=== PATIENT | male | born 1965 | race Caucasian/White ===

== ENCOUNTER 2016-11-29 09:37 | Emergency (ER) | payer BC ==
[~2016-11-29] VITALS: Ht 154.9 cm; Wt 68.5 kg
[~2016-11-29 09:37] MED LIST: NAPR-260 PO
[2016-11-29 09:45] VITALS: Ht 154.9 cm; Wt 68.5 kg
[2016-11-29] MEDS ORDERED: ACETAMINOPHEN 325 MG TAB PO ONE (11:00)
[2016-11-29 11:17] LABS: ADD SCAN DIFF NO
[2016-11-29 11:34] LABS: BASOPHILS % 0.3 % (0.0-2.0); EOSINOPHILS % 0.1 % (0.0-7.0); HEMATOCRIT 38.5 % (42.0-52.0); HEMOGLOBIN 13.4 g/dl (14.0-18.0); LYMPHOCYTES # 1.4 10^3/ul (0.8-2.9); LYMPHOCYTES % 11.9 % (15.0-51.0); MEAN CORPUSCULAR HEMOGLOBIN 29.4 pg (29.0-33.0); MEAN CORPUSCULAR HGB CONC 34.8 g/dl (32.0-37.0); MEAN CORPUSCULAR VOLUME 84.4 fl (82.0-101.0); MEAN PLATELET VOLUME 9.8 fl (7.4-10.4); MONOCYTE # 1.3 10^3/ul (0.3-0.9); MONOCYTES % 11.1 % (0.0-11.0); NEUTROPHIL # 9.2 10^3/ul (1.6-7.5); NEUTROPHILS % 76.2 % (39.0-77.0); PLATELET COUNT 252 10^3/UL (140-415); RED BLOOD COUNT 4.56 10^6/ul (4.70-6.10); RED CELL DISTRIBUTION WIDTH 14.7 % (11.5-14.5)
[2016-11-29 11:39] LABS: ADD UMIC YES; ALBUMIN 3.7 g/dl (3.3-4.9); ALBUMIN/GLOBULIN RATIO 0.92; BILIRUBIN,INDIRECT 0.3 mg/dl (0-1.1); BILIRUBIN,TOTAL 0.3 mg/dl (0.2-1.3); CREATININE 0.85 mg/dl (0.61-1.24); POTASSIUM 3.6 mmol/L (3.5-5.1); TOTAL PROTEIN 7.7 g/dl (6.1-8.1); URINE BILIRUBIN (Dip) NEGATIVE (NEGATIVE); URINE BLOOD (Dip) 1+ (NEGATIVE); URINE COLOR LT. YELLOW (YELLOW); URINE GLUCOSE (Dip) NEGATIVE (NEGATIVE); URINE KETONES (Dip) NEGATIVE (NEGATIVE); URINE LEUKOCYTE ESTERASE (Dip) 1+ (NEGATIVE); URINE NITRITE (Dip) POSITIVE (NEGATIVE); URINE TOTAL PROTEIN (Dip) TRACE (NEGATIVE); URINE UROBILINOGEN (Dip) 0.2 E.U./dL (0.1-1.0)
--- NOTE | 2016-11-29 11:40 | RADRPT ---
PROCEDURE: XR Chest. CLINICAL INDICATION: Abdominal pain. TECHNIQUE: Single frontal chest x-ray. COMPARISON: Chest vyncllybfh72/02/2016. FINDINGS: The cardiomediastinal silhouette is unremarkable. Mild bibasilar atelectasis is noted. No pneumothorax, pleural effusion or consolidation is seen. No acute osseous abnormality is noted. IMPRESSION: 1. Mild bibasilar atelectasis. 2. Otherwise no acute cardiopulmonary abnormality. RPTAT: HH .Didi Ramachandran MD, Date Time Electronically viewed and signed by .Didi Ramachandran MD, on 11/29/2016 11:39 .N/
[2016-11-29 11:48] LABS: BACTERIA,URINE MANY; URINE RBCS 0-2 /HPF (0)
[2016-11-29] MEDS ORDERED: SOD CHLORIDE 0.9% 1,000 ML IV ONE (12:15)
[2016-11-29] MEDS ORDERED: CEFTRIAXONE 1 GM/50 ML (PMX) 50 ML IVPB ONE (12:30)
[2016-11-29] MEDS ORDERED: ACET500C5 PO (14:12)
[2016-11-29] MEDS ORDERED: AMOX1TAB10 PO (14:12)
--- NOTE | 2016-11-29 14:16 | ERD ---
ER Documentation Chief Complaint Date/Time DATE: 11/29/16 TIME: 14:15 Chief Complaint body pain,fever x 1 week HPI This 48-year-old male complains of body aches and fever for last week. Some pain with urination possibly. He denies sore throat, cough, vomiting, diarrhea. Patient has a history of UTI but denies he has been told there is any prostate issues or any etiology of UTIs. ROS All systems reviewed and are negative except as per history of present illness. Medications Home Meds Active Scripts Amoxicillin/Potassium Clav (Amox-Clav 875-125 mg Tablet) 875-125 mg Tab, 1 TAB PO BID for 10 Days, #14 TAB Prov:VASILE MICHELE MD 11/29/16 Acetaminophen* (Tylophen*) 500 Mg Capsule, 1 CAP PO Q6H Y for PAIN AND OR ELEVATED TEMP, #20 CAP Prov:VASILE MICHELE MD 11/29/16 Naproxen* (Naprosyn*) 500 Mg Tablet, 500 MG PO BID Y for PAIN AND/OR INFLAMMATION, #30 TAB Prov:STEPHANIA YORK MD 05/18/16 Allergies Allergies: Coded Allergies: No Known Allergy (Unverified , 06/23/14) PMhx/Soc Medical and Surgical Hx: pt denies Medical Hx, pt denies Surgical Hx Hx Alcohol Use: No Hx Substance Use: No Hx Tobacco Use: No Physical Exam Vitals Vital Signs Date Time Temp Pulse Resp B/P Pulse Ox O2 Delivery O2 Flow Rate FiO2 11/29/16 09:45 102.1 117 18 137/78 98 Physical Exam Const: [] Head: Atraumatic Eyes: Normal Conjunctiva ENT: Normal External Ears, Nose and Mouth. Neck: Full range of motion..~ No meningismus. Resp: Clear to auscultation bilaterally Cardio: Regular rate and rhythm, no murmurs Abd: Soft, non tender, non distended. Normal bowel sounds Skin: No petechiae or rashes Back: No midline or flank tenderness Ext: No cyanosis, or edema Neur: Awake and alert Psych: Normal Mood and Affect Result Diagram: 11/29/16 1100 11/29/16 1100 Results 24 hrs Laboratory Tests Test 11/29/16 11:00 White Blood Count 12.010^3/ul Red Blood Count 4.5610^6/ul Hemoglobin 13.4g/dl Hematocrit 38.5% Mean Corpuscular Volume 84.4fl Mean Corpuscular Hemoglobin 29.4pg Mean Corpuscular Hemoglobin Concent 34.8g/dl Red Cell Distribution Width 14.7% Platelet Count 81747^3/UL Mean Platelet Volume 9.8fl Neutrophils % 76.2% Lymphocytes % 11.9% Monocytes % 11.1% Eosinophils % 0.1% Basophils % 0.3% Nucleated Red Blood Cells % 0.0/100WBC Neutrophils # 9.210^3/ul Lymphocytes # 1.410^3/ul Monocytes # 1.310^3/ul Eosinophils # 0.010^3/ul Basophils # 0.010^3/ul Nucleated Red Blood Cells # 0.010^3/ul Urine Color LT. YELLOW Urine Clarity CLEAR Urine pH 6.0 Urine Specific [place] 1.010 Urine Ketones NEGATIVE Urine Nitrite POSITIVE Urine Bilirubin NEGATIVE Urine Urobilinogen 0.2 E.U./dL Urine Leukocyte Esterase 1+ Urine Microscopic RBC 0-2/HPF Urine Microscopic WBC 25-50/HPF Urine Bacteria MANY Urine Hemoglobin 1+ Urine Glucose NEGATIVE% Urine Total Protein TRACE Sodium Level 131mmol/L Potassium Level 3.6mmol/L Chloride Level 99mmol/L Carbon Dioxide Level 21mmol/L Anion Gap 15 Blood Urea Nitrogen 11mg/dl Creatinine 0.85mg/dl Glucose Level 148mg/dl Calcium Level 9.0mg/dl Total Bilirubin 0.3mg/dl Direct Bilirubin 0.00mg/dl Indirect Bilirubin 0.3mg/dl Aspartate Amino Transf (AST/SGOT) 28IU/L Alanine Aminotransferase (ALT/SGPT) 43IU/L Alkaline Phosphatase 133IU/L Total Protein 7.7g/dl Albumin 3.7g/dl Globulin 4.00g/dl Albumin/Globulin Ratio 0.92 Lipase 87U/L Current Medications Medications (Trade) Dose Ordered Sig/Riya Route PRN Reason Start Time Stop Time Status Last Admin Dose Admin Acetaminophen 650 mg 650 mg ONCE ONCE PO 11/29/16 11:00 11/29/16 11:01 DC 11/29/16 11:00 Ceftriaxone Sodium 50 ml @ 100 mls/hr ONCE ONCE IVPB 11/29/16 12:30 11/29/16 12:59 DC 11/29/16 13:27 Sodium Chloride (NS) 1,000 ml @ 0 mls/hr Q0M ONCE IV 11/29/16 12:15 11/29/16 12:16 DC 11/29/16 13:27 Procedures/MDM I views obtained. CBC shows white blood cell count of 12, otherwise no acute abnormalities. Sodium is 131, otherwise no acute findings on CMP. Blood culture 2 pending urine culture pending. Urine shows positive leukocytes, nitrites and hemoglobin was sent for culture. Chest X-ray 1V Interpreted by me: Soft Tissue: No acute abnormalities Bones: No acute abnormalities Mediastinum/Cardiac Silhouette/Lungs: [No acute abnormalities]. Impression- normal 1 view chest x-ray Patient was given Rocephin 1 g IV and 1 L normal saline IV as well as medication for fever. Patient was observed till vital signs improved. Tachycardia likely due to fever. patient presents with fever and UTI symptoms was not ill-appearing suspicion is low for sepsis should be amenable to outpatient treatment. Patient will be treated with Augmentin and Tylenol home instructions for fluids. She recheck the next day for vomiting, chest pain, shortness breath, new or worsening symptoms or with primary care doctor this week. The patient was stable with no new complaints during the ER course. Clinically, there is no current evidence to suggest meningitis, sepsis, acute abdomen, pneumonia, acute coronary syndrome, pulmonary embolism, or any other emergent condition appearing to require further evaluation or hospitalization. The patient should certainly return for any new or worsening symptoms per the aftercare instructions. They should otherwise follow-up with her primary care doctor for reevaluation this week. Departure Diagnosis: Primary Impression: UTI (urinary tract infection) Urinary tract infection type: acute cystitis Hematuria presence: without hematuria Qualified Code: N30.00 - Acute cystitis without hematuria Additional Impression: Fever Fever type: unspecified Qualified Code: R50.9 - Fever, unspecified fever cause Condition: Stable Patient Instructions: Understanding Urinary Tract Infections (UTIs), Fever Control (Adult) Additional Instructions: CAROLEE JOSEO ZAHIDA . Cheque otro vez con [facility] doctor primario en el proximo ortiz or regresa para mas o nueva simptomas. VASILE MICHELE MD November 29, 2016 14:16
[2016-11-29] MEDS ORDERED: DOCU-144 PO (15:12)
== END 2016-11-29 15:15 | disposition home or self-care (01) ==
LOC: FTE 09:37
DX: N30.00 Acute cystitis without hematuria (principal)
CPT/HCPCS: 71010; 80053; 81001; 83690; 85025; 87040; 87086; J0696; J7030; Z7610; 81003

== ENCOUNTER 2016-12-20 01:10 | Emergency (ER) | payer BC ==
[~2016-12-20] VITALS: Ht 162.6 cm; Wt 64.5 kg
[~2016-12-20 01:10] MED LIST changes: +ACET500C5 PO; +AMOX1TAB10 PO; +DOCU-144 PO
[2016-12-20 01:12] VITALS: Ht 162.6 cm; Wt 64.5 kg
[2016-12-20] MEDS ORDERED: morphine 4 MG/ML VIAL IV STA (06:22)
[2016-12-20] MEDS ORDERED: ONDANSETRON 4 MG INJ IV STA (06:22)
[2016-12-20] MEDS ORDERED: SOD CHLORIDE 0.9% 1,000 ML IV STA (06:22)
[2016-12-20 06:32] LABS: ADD SCAN DIFF NO
[2016-12-20 06:34] LABS: BASOPHILS % 0.6 % (0.0-2.0); EOSINOPHILS % 0.4 % (0.0-7.0); HEMOGLOBIN 14.3 g/dl (14.0-18.0); LYMPHOCYTES # 1.8 10^3/ul (0.8-2.9); LYMPHOCYTES % 33.7 % (15.0-51.0); MEAN CORPUSCULAR HEMOGLOBIN 29.2 pg (29.0-33.0); MEAN CORPUSCULAR HGB CONC 33.3 g/dl (32.0-37.0); MEAN CORPUSCULAR VOLUME 87.8 fl (82.0-101.0); MEAN PLATELET VOLUME 10.1 fl (7.4-10.4); MONOCYTE # 0.6 10^3/ul (0.3-0.9); MONOCYTES % 10.5 % (0.0-11.0); NEUTROPHIL # 2.9 10^3/ul (1.6-7.5); NEUTROPHILS % 54.6 % (39.0-77.0); PLATELET COUNT 305 10^3/UL (140-415); RED CELL DISTRIBUTION WIDTH 15.2 % (11.5-14.5); WHITE BLOOD COUNT 5.2 10^3/ul (4.8-10.8)
[2016-12-20 07:01] LABS: ADD UMIC YES; URINE BILIRUBIN (Dip) NEGATIVE (NEGATIVE); URINE BLOOD (Dip) TRACE (NEGATIVE); URINE COLOR LT. YELLOW (YELLOW); URINE GLUCOSE (Dip) NEGATIVE (NEGATIVE); URINE KETONES (Dip) NEGATIVE (NEGATIVE); URINE LEUKOCYTE ESTERASE (Dip) NEGATIVE (NEGATIVE); URINE NITRITE (Dip) NEGATIVE (NEGATIVE); URINE TOTAL PROTEIN (Dip) TRACE (NEGATIVE); URINE UROBILINOGEN (Dip) 0.2 E.U./dL (0.1-1.0)
--- NOTE | 2016-12-20 07:06 | RADRPT ---
PROCEDURE: US Abdomen. CLINICAL INDICATION: abdominal pain TECHNIQUE: Multiple real-time images were acquired of the patient's right upper quadrant abdomen a nd retroperitoneum utilizing a high resolution transducer. COMPARISON: None FINDINGS: Limited study due to overlying bowel gas. The pancreas was not well seen. The liver demonstrates normal echogenicity. The liver is normal in size and no focal solid lesions are seen. The liver measures 14.2 cm in length. The portal vein is patent with normal direction of f low. No intrahepatic biliary dilatation is seen. No gallstones are identified within the gallbladder. There is no pericholecystic fluid or gallbladd er wall thickening. The common bile duct measures 6.7 mm in maximal dimension. No free fluid is identified. The right kidney is normal in size, and demonstrate normal echogenicity and cortical thickness. The right kidney measures 10.3 cm in long dimension. There is no evidence of hydronephrosis. There are no kidney stones. RPTAT: AA IMPRESSION: Limited study due to overlying bowel gas. No evidence of gallstones. Mildly dilated CBD. Pancreas not seen due to overlying bowel gas. .Nicholas Brown MD, Date Time Electronically viewed and signed by .Nicholas Brown MD, on 12/20/2016 07:06 .S/
[2016-12-20 07:08] LABS: ALANINE AMINOTRANSFERASE 25 IU/L (13-69); ALBUMIN 4.6 g/dl (3.3-4.9); ALBUMIN/GLOBULIN RATIO 1.27; ALKALINE PHOSPHATASE 102 IU/L (42-121); ANION GAP 16 (8-16); ASPARTATE AMINO TRANSFERASE 30 IU/L (15-46); BLOOD UREA NITROGEN 22 mg/dl (7-20); CALCIUM 8.6 mg/dl (8.4-10.2); CARBON DIOXIDE 20 mmol/L (21-31); CHLORIDE 113 mmol/L (97-110); CREATININE 0.89 mg/dl (0.61-1.24); GLUCOSE 105 mg/dl (70-220); POTASSIUM 3.9 mmol/L (3.5-5.1); SODIUM 145 mmol/L (135-144); TOTAL PROTEIN 8.2 g/dl (6.1-8.1)
[2016-12-20 07:15] LABS: SQUAMOUS EPITHELIAL CELL,UR FEW; URINE RBCS 0-2 /HPF (0)
[2016-12-20 07:24] LABS: TROPONIN-I < 0.012 ng/ml (0.00-0.12)
[2016-12-20] MEDS ORDERED: ONDA4TAB14 PO (07:30)
[2016-12-20] MEDS ORDERED: HYDR-902 PO (07:30)
[2016-12-20] MEDS ORDERED: LOPE2CAP PO (07:30)
--- NOTE | 2016-12-20 07:32 | ERD ---
ER Documentation Chief Complaint Date/Time DATE: 12/20/16 TIME: 07:31 Chief Complaint ABD PAIN, N/V/D X 3 DAYS WITH INTERMITTENT FEVER HPI Patient is a 51-year-old male with diabetes who presents with abdominal pain. The symptoms started on Monday. The pain comes and goes. He has had vomiting and diarrhea as well. He says that he has had subjective fevers and tried Tylenol for pain. The patient says the pain is in his upper abdomen. Upon review of old medical records this is the patient's fifth visit to the ER since 2013. He does not remember the name of his primary doctor. ROS All systems reviewed and are negative except as per history of present illness. Medications Home Meds Active Scripts Loperamide Hcl* (Imodium*) 2 Mg Capsule, 2 MG PO .AFTER EA LOOSE BM Y for DIARRHEA, #10 TAB Prov:JANICE SINGLETON MD 12/20/16 Ondansetron (Ondansetron Odt) 4 Mg Tab.rapdis, 4 MG PO Q6H Y for NAUSEA AND/OR VOMITING, #10 TAB Prov:JANICE SINGLETON MD 12/20/16 Hydrocodone/Acetaminophen ([place] 10-325 Tablet) 1 Each Tablet, 1 TAB PO Q6H Y for PAIN, #7 TAB Prov:JANICE SINGLETON MD 12/20/16 Docusate Sodium* (Colace*) 100 Mg Capsule, 100 MG PO BID, #20 CAP Prov:VASILE MICHELE MD 11/29/16 Amoxicillin/Potassium Clav (Amox-Clav 875-125 mg Tablet) 875-125 mg Tab, 1 TAB PO BID for 10 Days, #14 TAB Prov:VASILE MICHELE MD 11/29/16 Acetaminophen* (Tylophen*) 500 Mg Capsule, 1 CAP PO Q6H Y for PAIN AND OR ELEVATED TEMP, #20 CAP Prov:VASILE MICHELE MD 11/29/16 Naproxen* (Naprosyn*) 500 Mg Tablet, 500 MG PO BID Y for PAIN AND/OR INFLAMMATION, #30 TAB Prov:STEPHANIA YORK MD 05/18/16 Allergies Allergies: Coded Allergies: No Known Allergy (Unverified , 06/23/14) PMhx/Soc Medical and Surgical Hx: pt denies Surgical Hx History of Surgery: No Anesthesia Reaction: No Hx Neurological Disorder: No Hx Respiratory Disorders: No Hx Cardiac Disorders: No Hx Psychiatric Problems: No Hx Miscellaneous Medical Probl: Yes (DM) Hx Alcohol Use: No Hx Substance Use: No Hx Tobacco Use: No Smoking Status: Never smoker FmHx Family History: diabetes Physical Exam Vitals Vital Signs Date Time Temp Pulse Resp B/P Pulse Ox O2 Delivery O2 Flow Rate FiO2 12/20/16 07:39 97.6 69 20 113/84 100 Room Air 12/20/16 06:30 74 18 126/93 100 Room Air 12/20/16 01:12 97.0 89 18 111/89 98 Physical Exam Const: Mild distress Head: Atraumatic Eyes: Normal Conjunctiva ENT: Normal External Ears, Nose and Mouth. Neck: Full range of motion..~ No meningismus. Resp: Clear to auscultation bilaterally Cardio: Regular rate and rhythm, no murmurs Abd: Soft, upper abdomen epigastric pain with palpation without rebound or guarding Skin: No petechiae or rashes Back: No midline or flank tenderness Ext: No cyanosis, or edema Neur: Awake and alert Psych: Normal Mood and Affect Result Diagram: 12/20/1662712/20/16627 Results 24 hrs Laboratory Tests Test 12/20/16 06:28 12/20/16 06:40 White Blood Count 5.210^3/ul Red Blood Count 4.9010^6/ul Hemoglobin 14.3g/dl Hematocrit 43.0% Mean Corpuscular Volume 87.8fl Mean Corpuscular Hemoglobin 29.2pg Mean Corpuscular Hemoglobin Concent 33.3g/dl Red Cell Distribution Width 15.2% Platelet Count 26726^3/UL Mean Platelet Volume 10.1fl Neutrophils % 54.6% Lymphocytes % 33.7% Monocytes % 10.5% Eosinophils % 0.4% Basophils % 0.6% Nucleated Red Blood Cells % 0.0/100WBC Neutrophils # 2.910^3/ul Lymphocytes # 1.810^3/ul Monocytes # 0.610^3/ul Eosinophils # 0.010^3/ul Basophils # 0.010^3/ul Nucleated Red Blood Cells # 0.010^3/ul Sodium Level 145mmol/L Potassium Level 3.9mmol/L Chloride Level 113mmol/L Carbon Dioxide Level 20mmol/L Anion Gap 16 Blood Urea Nitrogen 22mg/dl Creatinine 0.89mg/dl Glucose Level 105mg/dl Calcium Level 8.6mg/dl Total Bilirubin 0.0mg/dl Direct Bilirubin 0.00mg/dl Indirect Bilirubin 0.0mg/dl Aspartate Amino Transf (AST/SGOT) 30IU/L Alanine Aminotransferase (ALT/SGPT) 25IU/L Alkaline Phosphatase 102IU/L Troponin I < 0.012ng/ml Total Protein 8.2g/dl Albumin 4.6g/dl Globulin 3.60g/dl Albumin/Globulin Ratio 1.27 Lipase 123U/L Urine Color LT. YELLOW Urine Clarity CLEAR Urine pH 6.0 Urine Specific [place] >=1.030 Urine Ketones NEGATIVE Urine Nitrite NEGATIVE Urine Bilirubin NEGATIVE Urine Urobilinogen 0.2 E.U./dL Urine Leukocyte Esterase NEGATIVE Urine Microscopic RBC 0-2/HPF Urine Microscopic WBC 0-2/HPF Urine Squamous Epithelial Cells FEW Urine Hemoglobin TRACE Urine Glucose NEGATIVE% Urine Total Protein TRACE Current Medications Medications (Trade) Dose Ordered Sig/Riya Route PRN Reason Start Time Stop Time Status Last Admin Dose Admin Sodium Chloride (NS) 1,000 ml @ 1,000 mls/hr Q1H STAT IV 12/20/16 06:22 12/20/16 07:21 DC 12/20/16 07:03 Morphine Sulfate (morphine) 4 mg ONCE STAT IV 12/20/16 06:22 12/20/16 06:23 DC 12/20/16 07:03 Ondansetron HCl (Zofran Inj) 4 mg ONCE STAT IV 12/20/16 06:22 12/20/16 06:23 DC 12/20/16 07:03 Procedures/MDM EKG read by me: Rate/Rhythm: Regular rate and rhythm at a rate of 72 Intervals: Normal Impression: No evidence of ischemia or arrhythmia Ultrasound negative per radiology. Patient is a 51-year-old male with diabetes who presents with abdominal pain and vomiting. He also has diarrhea. He has no signs of appendicitis, cholecystitis, pancreatitis, or bowel obstruction. At this point I believe outpatient management is appropriate but the patient will need close follow-up with his primary doctor within 24 hours for reevaluation. He will be given medications for symptomatically relief. He can return sooner for any worsening symptoms. He was provided copies with laboratory studies and ultrasound report prior to discharge. Departure Diagnosis: Primary Impression: Vomiting and diarrhea Additional Impression: Abdominal pain Abdominal location: epigastric Qualified Code: R10.13 - Epigastric pain Condition: Fair Patient Instructions: Abdominal Pain, Self-Care for Vomiting and Diarrhea Referrals: Your doctor Additional Instructions: Llame al doctor MAANA y shea suzie MATT PARA DENTRO DE 1-2 LO.Dgale a la secretaria que nosotros le instruimos hacer esta matt.Avise o llame si burrows condicin se empeora antes de la matt. Regresa aqui si peor o no mejor. JANICE SINGLETON MD Dec 20, 2016 07:32
[2016-12-20 07:39] VITALS: BP 113/84; PULSE 69; RESP 20; TEMP 97.6
== END 2016-12-20 07:42 | disposition home or self-care (01) ==
LOC: E/R 01:10
DX: R11.10 Vomiting, unspecified (principal); E11.9 Type 2 diabetes mellitus without complications; R19.7 Diarrhea, unspecified; R10.13 Epigastric pain
CPT/HCPCS: 36415; 76705; 80053; 81001; 83690; 84484; 85025; 93005; 96374; 96375; 99285; J2270; J2405; J7030

== ENCOUNTER 2017-02-20 07:31 | Emergency (ER) | payer BC ==
[~2017-02-20] VITALS: Ht 165.1 cm; Wt 70.0 kg
[~2017-02-20 07:31] MED LIST changes: +HYDR-902 PO; +LOPE2CAP PO; +ONDA4TAB14 PO
[2017-02-20 07:37] VITALS: Ht 165.1 cm; Wt 70.0 kg
[2017-02-20] MEDS ORDERED: ONDANSETRON 4 MG INJ IV STA ×2 (07:54→09:15)
[2017-02-20] MEDS ORDERED: morphine 4 MG/ML VIAL IV STA (07:54)
--- NOTE | 2017-02-20 08:20 | ERA ---
ER Documentation Chief Complaint Date/Time DATE: 02/20/17 TIME: 08:16 Chief Complaint Complains of hip and left groin pain after a fall HPI This is a 51-year-old [place]ian-speaking male who presents to the emergency room with multiple complaints. An code enforcement officer was used. His main complaints is right testicle pain. The patient is a very difficult historian and thinks that he has had pain for approximately 1 week. Possibly on and off for 1-2 days but constant since at least last . Patient describes swelling to the testicle, no blunt trauma to the testicle. He does report that approximately 1 week ago he fell off a ladder approximately 7 feet off the ground and landed on his right foot and lumbar back. Patient is describing moderate throbbing pain to the right heel and lumbar back that is paraspinal, steady gait, no bowel or bladder incontinence and/or retention, no numbness or tingling. His main complaint at this time appears to be testicle pain. ROS All systems reviewed and are negative except as per history of present illness. Medications Home Meds Active Scripts Cephalexin* (Keflex*) 500 Mg Capsule, 500 MG PO BID for 14 Days, CAP Prov:AMANDA VAZQUEZ MD 02/20/17 Ondansetron (Ondansetron Odt) 4 Mg Tab.rapdis, 4 MG PO Q6H Y for NAUSEA AND/OR VOMITING, #10 TAB Prov:AMANDA VAZQUEZ MD 02/20/17 Ibuprofen* (Motrin*) 800 Mg Tab, 800 MG PO Q6H Y for PAIN AND OR ELEVATED TEMP, #30 TAB Prov:AMANDA VAZQUEZ MD 02/20/17 Hydrocodone/Acetaminophen ([place] 10-325 Tablet) 1 Each Tablet, 1 TAB PO Q6H Y for PAIN, #7 TAB Prov:AMANDA VAZQUEZ MD 02/20/17 Loperamide Hcl* (Imodium*) 2 Mg Capsule, 2 MG PO .AFTER EA LOOSE BM Y for DIARRHEA, #10 TAB Prov:JANICE SINGLETON MD 12/20/16 Ondansetron (Ondansetron Odt) 4 Mg Tab.rapdis, 4 MG PO Q6H Y for NAUSEA AND/OR VOMITING, #10 TAB Prov:JANICE SINGLETON MD 12/20/16 Hydrocodone/Acetaminophen ([place] 10-325 Tablet) 1 Each Tablet, 1 TAB PO Q6H Y for PAIN, #7 TAB Prov:JANICE SINGLETON MD 12/20/16 Docusate Sodium* (Colace*) 100 Mg Capsule, 100 MG PO BID, #20 CAP Prov:VASILE MICHELE MD 11/29/16 Amoxicillin/Potassium Clav (Amox-Clav 875-125 mg Tablet) 875-125 mg Tab, 1 TAB PO BID for 10 Days, #14 TAB Prov:VASILE MICHELE MD 11/29/16 Acetaminophen* (Tylophen*) 500 Mg Capsule, 1 CAP PO Q6H Y for PAIN AND OR ELEVATED TEMP, #20 CAP Prov:VASILE MICHELE MD 11/29/16 Naproxen* (Naprosyn*) 500 Mg Tablet, 500 MG PO BID Y for PAIN AND/OR INFLAMMATION, #30 TAB Prov:STEPHANIA YORK MD 05/18/16 Allergies Allergies: Coded Allergies: No Known Allergy (Unverified , 06/23/14) PMhx/Soc History of Surgery: No Anesthesia Reaction: No Hx Neurological Disorder: No Hx Respiratory Disorders: No Hx Cardiac Disorders: No Hx Psychiatric Problems: No Hx Miscellaneous Medical Probl: Yes (DM) Hx Alcohol Use: No Hx Substance Use: No Hx Tobacco Use: No FmHx Family History: No diabetes Physical Exam Vitals Vital Signs Date Time Temp Pulse Resp B/P Pulse Ox O2 Delivery O2 Flow Rate FiO2 02/20/17 08:20 98.4 88 20 134/88 99 Room Air 02/20/17 07:37 98.4 78 20 142/102 98 Physical Exam Airway is intact Bilateral breath sounds Strong distal pulses No obvious deficits General: Well developed, well nourished, no acute distress Head: Normocephalic, atraumatic Eyes: Pupils equally reactive, EOM intact ENT: Moist mucous membranes Neck: Supple, no lymphadenopathy, No midline tenderness, deformities, step-offs to the cervical spine, full active and passive range of motion without midline pain. Respiratory: Lungs clear bilaterally, no distress, no chest wall tenderness, no crepitus Cardiovascular: RRR, no murmurs, rubs, or gallops Abdominal: Soft, non-tender, non-distended, no peritoneal signs, pelvis is stable : Uncircumcised male. A significantly swollen, firm and tender right testicle is noted within the scrotal contents, limited reflexes on the right side, no hernia palpated to inguinal region MSK: No edema, no unilateral swelling, 5/5 strength, no midline tenderness deformities or step-offs to the thoracolumbar spine, reproducible soft tissue paraspinal tenderness to the right lumbar back. Mild soft tissue tenderness to the right calcaneus however no deformities or crepitus, no significant ecchymoses or swelling, 2+ dorsalis pedis and posterior tibial pulses. Neurologic: Alert and oriented, moving all extremities, normal speech, no focal weakness, no cerebellar signs Skin: No ecchymoses or bruising to the chest or abdomen Psych: Normal mood Result Diagram: 02/20/17 0815 02/20/17 0815 Results 24 hrs Laboratory Tests Test 02/20/17 08:15 02/20/17 09:30 White Blood Count 20.210^3/ul Red Blood Count 4.8710^6/ul Hemoglobin 14.3g/dl Hematocrit 41.8% Mean Corpuscular Volume 85.8fl Mean Corpuscular Hemoglobin 29.4pg Mean Corpuscular Hemoglobin Concent 34.2g/dl Red Cell Distribution Width 13.6% Platelet Count 54967^3/UL Mean Platelet Volume 9.8fl Neutrophils % % Segmented Neutrophils % (Manual) 81% Band Neutrophils % (Manual) 3% Lymphocytes % % Lymphocytes % (Manual) 11% Monocytes % % Monocytes % (Manual) 5% Eosinophils % % Basophils % % Nucleated Red Blood Cells % 0.0/100WBC Neutrophils # 10^3/ul Neutrophils # (Manual) 16.510^3/ul Band Neutrophils # 0.610^3/ul Absolute Lymphocytes (Manual) 2.210^3/ul Lymphocytes # 10^3/ul Monocytes # 10^3/ul Absolute Monocytes (Manual) 1.010^3/ul Eosinophils # 10^3/ul Basophils # 10^3/ul Nucleated Red Blood Cells # 10^3/ul Thrombocytosis 1% Platelet Estimate NORMAL Polychromasia 3+ Anisocytosis 1+ Microcytosis 1+ Prothrombin Time 13.5Sec Prothrombin Time Ratio 1.1 INR International Normalized Ratio 1.03 Activated Partial Thromboplast Time 38.7Sec Sodium Level 138mmol/L Potassium Level 4.3mmol/L Chloride Level 99mmol/L Carbon Dioxide Level 23mmol/L Anion Gap 20 Blood Urea Nitrogen 13mg/dl Creatinine 0.74mg/dl Glucose Level 146mg/dl Calcium Level 9.8mg/dl Urine Color YELLOW Urine Clarity CLEAR Urine pH 6.0 Urine Specific [place] 1.006 Urine Ketones NEGATIVEmg/dL Urine Nitrite NEGATIVEmg/dL Urine Bilirubin NEGATIVEmg/dL Urine Urobilinogen NEGATIVEmg/dL Urine Leukocyte Esterase NEGATIVELeu/ul Urine Microscopic RBC 0/HPF Urine Microscopic WBC 2/HPF Urine Hemoglobin 1+mg/dL Urine Glucose NEGATIVEmg/dL Urine Total Protein NEGATIVEmg/dl Current Medications Medications (Trade) Dose Ordered Sig/Riya Route PRN Reason Start Time Stop Time Status Last Admin Dose Admin Morphine Sulfate (morphine) 4 mg ONCE STAT IV 02/20/17 07:54 02/20/17 07:58 DC 02/20/17 08:13 Ondansetron HCl 4 mg 4 mg ONCE STAT IV 02/20/17 07:54 02/20/17 07:58 DC 02/20/17 08:12 Sodium Chloride (NS) 1,000 ml @ 1,000 mls/hr Q1H STAT IV 02/20/17 09:15 02/20/17 10:14 02/20/17 09:21 Hydromorphone HCl (Dilaudid) 1 mg ONCE STAT IV 02/20/17 09:15 02/20/17 09:17 DC 02/20/17 09:26 Ondansetron HCl 4 mg 4 mg ONCE STAT IV 02/20/17 09:15 02/20/17 09:17 DC 02/20/17 09:26 Ceftriaxone Sodium (Rocephin) 50 ml @ 100 mls/hr ONCE STAT IVPB 02/20/17 09:15 02/20/17 09:44 DC 02/20/17 09:26 Procedures/MDM EKG, MONITORS, & DIAGNOSTIC IMAGING: Ultrasound scrotum: IMPRESSION: 1. Hyperemic appearance to the right epididymis consistent with epididymitis. 2. Two right-sided spermatoceles. The largest measures 0.9 x 0.7 cm. 3. Right-sided hydrocele. 4. Symmetrically normal appearing testes bilaterally. CT lumbar spine: IMPRESSION: No acute lumbar vertebral compression fracture. RPTAT: AA CT pelvis: IMPRESSION: No evidence of acute fractures dislocations or fluid collections. RPTAT:AAJJ CT right foot: IMPRESSION: 1. Tiny age indeterminate avulsion fractures of the tip of the medial malleolus. 2. Unremarkable appearance to the calcaneus. RPTAT: [facility] Procedure: Splint Application Note: Splint type: Fabricated Ortho-Glass stirrup Extremity: Right lower extremity Indication: Possible avulsion fracture The patient was consented at bedside prior to splint application and states understanding of risks, benefits, and alternatives. The patient was neurovascularly intact prior to and status post application of the splint. The patient tolerated the procedure well and there were no complications. LAB INTERPRETATION: Leukocytosis MEDICAL DECISION MAKING: The patient presents with multiple complaints. The patient did have a mechanical fall off a ladder approximately 1 week ago. However today he is complaining mostly of testicle pain. On exam his right testicle is very concerning for testicular torsion however the patient has had symptoms for at least 5 days. This would then be concerning for necrotic testicle at this point. Emergent operative salvage and testicle rescue is likely to be beneficial however stat scrotal ultrasound and urology consultation have been ordered. I believe that the patient's mechanical fall could be a red martinez. I do not believe it is related to the testicle pain. He is no evidence of spinal shock or cauda equina or cord compression. However, given that he did have a fall with this testicular finding I believe CT imaging of the lumbar spine pelvis would be appropriate including CT imaging of the calcaneus. CT of her x-ray imaging given sensitivity and significant height of fall with delay in presentation. ER COURSE: The patient's scrotal ultrasound shows evidence of good flow bilaterally. This is more consistent with likely epididymoorchitis. The patient was given IV ceftriaxone and will be sent home on 14 days of Keflex. I spoke to Dr. Lindo , we discussed the case and he recommends outpatient antibiotics and outpatient follow-up. Referral information provided. From a trauma standpoint the patient has no evidence of lumbar spine or pelvic fracture. Possible subacute medial malleolus avulsion fracture. Patient immobilized and provided outpatient follow-up resources. Again, this is likely old and not related to the patient's recent fall. Patient's pain is well controlled and the patient can be safely discharged. I kept the patient and/or family informed of laboratory and diagnostic imaging results throughout the emergency room course. DISPOSITION PLAN: We discussed follow up with the patient's primary care doctor within 24 to 48 hours as needed. We also discussed return to the emergency room for worsening symptoms or worsening condition. Outpatient referral: Urology Discharge Medications: [place], Zofran, Motrin, Keflex We discussed the use of narcotics including avoidance of operating heavy machinery and driving as well as its addictive properties. Departure Diagnosis: Primary Impression: Epididymo-orchitis, acute Additional Impressions: Right ankle pain Qualified Code: M25.571 - Acute right ankle pain Lumbar contusion Qualified Code: S30.0XXA - Lumbar contusion, initial encounter Condition: Stable AMANDA VAZQUEZ MD Feb 20, 2017 08:20
[2017-02-20 08:32] LABS: HEMATOCRIT 41.8 % (42.0-52.0); HEMOGLOBIN 14.3 g/dl (14.0-18.0); MEAN CORPUSCULAR HEMOGLOBIN 29.4 pg (29.0-33.0); MEAN CORPUSCULAR HGB CONC 34.2 g/dl (32.0-37.0); MEAN CORPUSCULAR VOLUME 85.8 fl (82.0-101.0); MEAN PLATELET VOLUME 9.8 fl (7.4-10.4); PLATELET COUNT 302 10^3/UL (140-415); POSITIVE DIFF @See below; RED BLOOD COUNT 4.87 10^6/ul (4.70-6.10); RED CELL DISTRIBUTION WIDTH 13.6 % (11.5-14.5); WHITE BLOOD COUNT 20.2 10^3/ul (4.8-10.8)
[2017-02-20 08:50] LABS: CALCIUM 9.8 mg/dl (8.4-10.2); CREATININE 0.74 mg/dl (0.61-1.24); POTASSIUM 4.3 mmol/L (3.5-5.1)
--- NOTE | 2017-02-20 08:51 | RADRPT ---
PROCEDURE: Scrotal ultrasound CLINICAL INDICATION: Painful swollen right testicle TECHNIQUE: Scrotal ultrasound was performed with sagittal and transverse views. Morin scale and co harish imaging was performed. Images were reviewed on high resolution PACS monitors. COMPARISON: None available FINDINGS: The right testicle measures 3.9 x 3.1 x 3.1 cm. The left testicle measures 3.9 x 2.2 x 2.2 cm. There is normal size and echogenicity and morphology bilaterally. There is normal blood flow seen bilaterally. There is a hyperemic appearance to the right epididymis with too small spermatoceles. The largest m easures 0.9 x 0.7 cm. There is a right-sided hydrocele present. There is no evidence for varicocele. The soft tissues are unremarkable. No mass or cyst or other abnormality is seen. IMPRESSION: 1. Hyperemic appearance to the right epididymis consistent with epididymitis. 2. Two right-sided spermatoceles. The largest measures 0.9 x 0.7 cm. 3. Right-sided hydrocele. 4. Symmetrically normal appearing testes bilaterally. RPTAT: [facility] Physician Mai Date Time Electronically viewed and signed by Physician Mai on 02/20/2017 08:51 /
[2017-02-20 08:54] LABS: INR 1.03; PROTIME 13.5 Sec (12.2-14.2); PT RATIO 1.1
[2017-02-20 08:55] LABS: PARTIAL THROMBOPLASTIN TIME 38.7 Sec (25.0-35.0)
--- NOTE | 2017-02-20 09:02 | RADRPT ---
PROCEDURE: CT L-Spine. CLINICAL INDICATION: Back pain , trauma TECHNIQUE: A CT of the lumbar spine was performed on a multidetector CT scanner utilizing axial im ages from the thoracic lumbar junction through the lumbar sacral junction. Sagittal and coronal ref ormatted images were made. The CTDIvol is 10mGy and the DLP is 283mGycm. One or more of the followin g dose reduction techniques were used: Automated exposure control, Adjustment of the mA and/or kV ac cording to patient size, and/or use of iterative reconstruction technique. COMPARISON: None available. FINDINGS: No evidence of an acute lumbar vertebral compression fracture. L1-2: The disk space height is maintained. No bony spinal canal or bony foraminal narrowing. L2-3: The disk space height is maintained. No bony spinal canal or bony foraminal narrowing. L3-4: The disk space height is maintained.No bony spinal canal or bony foraminal narrowing. L4-5: The disk space height is maintained.No bony spinal canal or bony foraminal narrowing. L5-1: The disk space height is maintained.No bony spinal canal or bony foraminal narrowing. The paraspinous soft tissues are grossly unremarkable. IMPRESSION: No acute lumbar vertebral compression fracture. RPTAT: AA .Jassi Jones MD, Date Time Electronically viewed and signed by .Jassi Jones MD, MD on 02/20/2017 09:02 .T/
--- NOTE | 2017-02-20 09:08 | RADRPT ---
PROCEDURE: CT scan of the pelvis without contrast. CLINICAL INDICATION: fall off ladder 7 feet w/ back pain TECHNIQUE: CT scan of the pelvis without contrast was performed on a multidetector high-resolutio n CT scan. Standard CT scan of the pelvis without contrast protocols were performed. The total exam CTDI equals 5.62 mGy and the total exam DLP equals 153.85 mGy-cm. One or more of the following dose reduction techniques were used: - Automated exposure control. - Adjustment of the mA and/or kV according to patient size. Use of iterative reconstruction technique. COMPARISON: None. FINDINGS: There are no acute fractures. The bony mineralization is normal. No focal bony blastic or lytic le sions. There is no evidence of free pelvic fluid. Those portions of the small large bowel visualiz ed are unremarkable. The prostate is unremarkable. The bladder appears unremarkable. The pelvic w all soft tissues are unremarkable. IMPRESSION: No evidence of acute fractures dislocations or fluid collections. RPTAT:[facility] Physician Nathen Date Time Electronically viewed and signed by Physician Nathen on 02/20/2017 09:08 BM/
[2017-02-20] MEDS ORDERED: SOD CHLORIDE 0.9% 1,000 ML IV STA (09:15)
[2017-02-20] MEDS ORDERED: HYDROmorphONE 1 MG/ML SYG IV STA (09:15)
[2017-02-20] MEDS ORDERED: CEFTRIAXONE 1 GM/50 ML (PMX) 50 ML IVPB STA (09:15)
[2017-02-20] MEDS ORDERED: ONDA4TAB14 PO (09:21)
[2017-02-20] MEDS ORDERED: HYDR-902 PO (09:21)
[2017-02-20] MEDS ORDERED: CEPH-443 PO (09:21)
[2017-02-20] MEDS ORDERED: IBUP800T25 PO (09:21)
[2017-02-20 09:30] LABS: ANISOCYTOSIS 1+ (0-0); GIANT THROMBO% (M) 1 % (0-0); MICROCYTOSIS 1+ (0-0); MONOCYTES % (M) 5 % (0-11); PLATELET ESTIMATE NORMAL; POLYCHROMASIA 3+ (0-0)
[2017-02-20 09:51] LABS: ADD UMIC YES; UR ASCORBIC ACID NEGATIVE (NEGATIVE); UR BILIRUBIN (Dip) NEGATIVE (NEGATIVE); UR BLOOD (Dip) 1+ mg/dL (NEGATIVE); UR CLARITY CLEAR (CLEAR); UR COLOR YELLOW (YELLOW); UR GLUCOSE (Dip) NEGATIVE (NEGATIVE); UR KETONES (Dip) NEGATIVE (NEGATIVE); UR LEUKOCYTE ESTERASE (Dip) NEGATIVE Leu/ul (NEGATIVE); UR NITRITE (Dip) NEGATIVE (NEGATIVE); UR RBC 0 /HPF (0-5); UR SPECIFIC GRAVITY (Dip) 1.006 (1.003-1.030); UR TOTAL PROTEIN (Dip) NEGATIVE (NEGATIVE); UR UROBILINOGEN (Dip) NEGATIVE (NEGATIVE)
--- NOTE | 2017-02-20 09:51 | RADRPT ---
PROCEDURE: CT scan right foot CLINICAL INDICATION: Fell off ladder, right foot and heel pain. TECHNIQUE: CT scan of the right foot was performed on the high-resolution multidetector CT scanner . No IV contrast was administered. Axial images were obtained throughout the right foot with ana nal and sagittal reformatted images. Images were reviewed on a high-resolution PACS workstation. C TDI = 11.58 mGy, and the DLP = 185.36 mGy-cm. COMPARISON: None available. FINDINGS: There is very mild soft tissue swelling medially inferior to the tip of the medial malleolus. There is a tiny avulsion fractures of the tip of the medial malleolus of indeterminate age. Ankle mortis e appears maintained. The tarsal bones and visualized metatarsals are unremarkable in appearance Th e talus appears intact. The calcaneus demonstrates a normal configuration with intact cortex. Visu alized soft tissues appear unremarkable. IMPRESSION: 1. Tiny age indeterminate avulsion fractures of the tip of the medial malleolus. 2. Unremarkable appearance to the calcaneus. RPTAT: [facility] Physician Mai Date Time Electronically viewed and signed by Physician Mai on 02/20/2017 09:51 /
[2017-02-20 10:22] VITALS: BP 142/91; PULSE 88; RESP 18; TEMP 97.9
== END 2017-02-20 10:28 | disposition home or self-care (01) ==
LOC: E/R 07:31
DX: N45.3 Epididymo-orchitis (principal); S30.0XXA Contusion of lower back and pelvis, initial encounter; S99.911A Unspecified injury of right ankle, initial encounter; E11.9 Type 2 diabetes mellitus without complications; W11.XXXA Fall on and from ladder, initial encounter; Y92.9 Unspecified place or not applicable
CPT/HCPCS: 29515; 36415; 72131; 72192; 73700; 76870; 80048; 81001; 85025; 85610; 85730; 87086; 96374; 96375; 96376; 99285; J0696; J1170; J2270; J2405; J7030; P9612

== ENCOUNTER 2017-12-04 09:42 | Emergency (ER) | END 2017-12-04 12:58 | disposition home or self-care (01) ==